=== PATIENT | female | born 2000 | race Two or more races ===

== ENCOUNTER 2023-12-31 15:33 | Emergency (ER) | payer OTHER ==
[~2023-12-31] VITALS: Ht 162.6 cm; Wt 65.8 kg
[2023-12-31] MEDS ORDERED: 0.9 % SODIUM CHLORIDE 1,000 ML IV ONE (16:30)
[2023-12-31] MEDS ORDERED: FAMOtidine 10 MG/ML (4ML VIAL) IV ONE (16:30)
[2023-12-31] MEDS ORDERED: KETOROLAC TROMETHAMINE 60 MG VIAL IM ONE (16:30)
[2023-12-31] MEDS ORDERED: KETOROLAC TROMETHAMINE 30 MG VIAL ONE (16:44)
[2023-12-31] MEDS ORDERED: FAMOTIDINE/PF 20 MG/2 ML VIAL ONE (16:44)
[2023-12-31 17:17] LABS: HEMATOCRIT 39.3 % (36.0-45.00); HEMOGLOBIN 13.4 g/dL (12.0-15.00); MEAN CELL VOLUME 89.4 fL (80.00-100.00); MEAN CORPUSCULAR HEMOGLOBIN 30.4 pg (27.00-32.0); PLATELET COUNT 259 K/uL (150-450); RED BLOOD COUNT 4.39 M/uL (4.00-6.00); RED CELL DISTRIBUTION WIDTH 13.6 % (11.5-14.5)
[2023-12-31 17:38] LABS: ALBUMIN 4.4 gm/dL (3.4-5.0); ALKALINE PHOSPHATASE 65 U/L (50-136); ALT/SGPT 17 U/L (12-78); AMYLASE 68 U/L (25-115); ANION GAP 8 (10.0-20.0); AST/SGOT 11 U/L (15-37); BILIRUBIN TOTAL 0.71 mg/dL (0.3-1.2); BLOOD UREA NITROGEN 12 mg/dL (7-18); BUN CREA RATIO 18 (7.0-25.0); CALCIUM 9.6 mg/dL (8.5-10.1); CARBON DIOXIDE 29 mEq/L (21-32); CHLORIDE 108 mmol/L (98-107); CREATININE SERUM 0.68 mg/dL (0.55-1.02); GLOBULINA 3.5 G/DL (2.4-3.5); GLUCOSE FASTING 96 mg/dL (65-100); LIPASE 36 U/L (13-75); OSMOLALITY SERUM 281 MOSM/KG (275-295); SODIUM 141 mmol/L (136-145); TOTAL PROTEIN 7.9 gm/dL (6.4-8.2)
[2023-12-31 17:39] LABS: HCG QUANTITATIVE < 1 mUI/mL (1-3)
[2023-12-31 18:53] LABS: PH,URINE 5.5 (5.0-8.0); URINE APPEARANCE Clear; URINE BILIRRUBIN Negative (NEGATIVE); URINE BLOOD Trace; URINE COLOR Yellow; URINE GLUCOSE Negative (NEGATIVE); URINE KETONE Negative (NEGATIVE); URINE LEUKOCYTE Trace; URINE NITRATE Negative; URINE PROTEIN Negative (NEGATIVE); URINE UROBILINOGEN 0.2 E.U./dl
[2023-12-31 18:58] LABS: URINE BACTERIA 294.7 uL (0.0-1933); URINE EPITHELIAL CELLS 17.6 uL (0.0-38.8); URINE RBC 4.1 uL (0.0-20.8); URINE WBC 48.8 uL (0.0-23.2)
[2023-12-31 19:20] LABS: URINE CAST 0.61 uL (0.0-1.40)
[2023-12-31] MEDS ORDERED: PEPCID AC20 MG PO (22:06)
[2023-12-31] MEDS ORDERED: ZOFRAN8 MG PO (22:06)
== END 2023-12-31 22:25 | disposition home or self-care (01) ==
LOC: ER 15:34
PROVIDERS: General Practice
DX: K52.9 Noninfective gastroenteritis and colitis, unspecified (principal); I88.0 Nonspecific mesenteric lymphadenitis